=== PATIENT | female | born 1960 | race Hispanic/Latino ===

== ENCOUNTER 2019-05-05 16:10 | Observation (INO) | payer MEDICARE, OTHER ==
[~2019-05-05] VITALS: Ht 154.9 cm; Wt 99.8 kg
[~2019-05-05 16:10] MED LIST: AMARYL4 MG PO; ASPIRIN 8181 MG PO; BACTRIM DS1 TAB PO; CLARITIN10 MG OR; CRESTOR10 MG OR; CRESTOR5 MG PO; FLONASE NASAL50 MCG; FLORASTOR250 M1 PO; GLIMEPIRIDE4 MG PO; IRON325 MG OR; LANTUS SOLOSTAR SC; LEVAQUIN500 MG PO; LEVAQUIN750 MG PO; LEVEMIR SC; LOSARTAN POT25 MG PO; MEDDOSEPAK PO; METFORMIN1000 MG PO; Metformin OR; NAPROSYN375 MG OR; NEXIUM40 M1 PO; NITROFURANTN100 MG PO; NO HOME MEDS; NOVOLOG FLEXPEN; TRADJENTA5 MG PO; VITAMIN D1000 UNI2 PO; YASMIN 281 TAB OR; ZITHROMAX500 MG PO; [UNRECOGNIZED DRUG - CODE]
--- NOTE | 2019-05-05 16:10 | NUR ---
PT CAME FROM [facility] VIA MEDICAL TRANSPORTION. PT IS A&O X3. PT DENIES PAIN AT THIS TIME. SAFETY PRECAUTIONS REINFORCED AND CALL LIGHT IN REACH.
[2019-05-05 17:26] VITALS: BP 112/56
--- NOTE | 2019-05-05 17:49 | NUR ---
Patient decides to leave AMA. Multiple attempts made to ecourage patient to remain here for continued treatment. Explained to patient all risks of leaving against medical advice including . Pt verbalized understanding of all risks. Pt also encouraged to return to [facility] at any time, especially if symptoms continue or become worse. Pt verbalized understanding. PT STATED SHE HAD TO GO HOME BECAUSE HER DOG WAS ALONE AND SHE HAS NOT GOT HER MEDICATIONS YET. PT REFUSED WHEELCHAIR AND AMBULATED WITH FRIEND.
== END 2019-05-05 17:49 | disposition left against medical advice (07) ==
LOC: MS2 16:10
PROVIDERS: ADMIT Internal Medicine; ATTEND Internal Medicine
DX: R07.9 Chest pain, unspecified (principal)